=== PATIENT | male | born 1990 | race Caucasian/White ===

== ENCOUNTER 2023-05-28 20:33 | Emergency (ER) | payer OTHER, SELFPAY ==
[2023-05-28 20:58] VITALS: BP 115/73
[2023-05-28 21:15] LABS: % Basophils 0.7 % (0-2); % Eosinophils 2.3 % (0-6); % Immature Granulocytes 0.3 % (0-0.5); % Neutrophils 58.7 % (42.2-75.2); Absolute Eosinophils 0.1 10^3/uL (0-0.7); Absolute Lymphocytes 1.7 10^3/uL (1.2-3.4); Absolute Monocytes 0.5 10^3/uL (0.1-0.6); Absolute Neutrophils 3.4 10^3/uL (1.4-6.5); Hematocrit 36.9 % (39.0-52.0); Hemoglobin 13.9 g/dL (13.0-18.0); Mean Corp Hgb Conc. 37.7 g/dL (33.0-37.0); Mean Corpuscular Hgb 29.9 pg (27.0-31.0); Mean Corpuscular Volume 79.4 fL (80.0-94.0); Mean Platelet Volume 9.2 fL (7.4-10.4); Nucleated Red Blood Cells % 0 % (-); Platelet Count 154 10^3/uL (130-400); Red Blood Cell Count 4.65 10^6/uL (4.70-6.10); Red Cell Dist. Width 12.9 % (11.5-14.5); Urine Albumin Negative (Neg - Trace); Urine Bilirubin 1+ (Negative); Urine Character Clear (Clear); Urine Color Yellow; Urine Glucose Negative (Negative); Urine Ketone Trace (Negative); Urine Leukocyte Negative (Negative); Urine Nitrite Negative (Negative); Urine Occult Blood Negative (Negative); Urine Specific Gravity 1.025 (<1.030); Urine Urobilinogen 1+ (Neg - 1+); White Blood Cell Count 5.8 10^3/uL (4.8-10.8)
[2023-05-28 21:30] LABS: ALT (SGPT) 43 U/L (0-50); AST (SGOT) 61 U/L (17-59); Albumin 4.8 g/dl (3.5-5.0); Alkaline Phosphatase 79 U/L (38-126); Blood Urea Nitrogen 13 mg/dl (9-20); Calcium 8.9 mg/dl (8.4-10.2); Carbon Dioxide 31 mmol/L (22-30); Chloride 101 mmol/L (98-107); Glucose 140 mg/dl (70-99); Lipase 140 U/L (23-300); Potassium 3.7 mmol/L (3.5-5.1); Sodium 137 mmol/L (135-145); Total Bilirubin 1.1 mg/dl (0.2-1.3); eGFR > 60.00
--- NOTE | 2023-05-28 21:45 | ED.GENMED ---
History of Present Illness
General
Chief Complaint: Abdominal Pain
Source: patient and spouse
Exam Limitations: none
Time Seen by Provider: 05/28/23 21:27
Nursing documentation reviewed up to this point in time: agreed with
Travel History
Have you had any contact with someone who has COVID-19?: No
Do you have any symptoms of coronavirus? Fever > 100 degrees, chills, cough, shortness of breath, sore throat, loss of taste or smell, muscle aches, or headache?: No
History of Present Illness
History of Present Illness:
33-year-old male nondrinker non-smoker no prior abdominal surgery presents with upper right abdominal pain after eating dinner fairly severe 8 out of 10 felt nauseous felt like he been punched, no shortness of breath no hematuria no groin pain no
prior episodes does not drink or smoke
Past History
Past History
ED Past Medical History: None
ED Past Surgical History: Other (Oral surgery)
Social History
Tobacco: Non-smoker
Alcohol: None
Drug: None
Personal:
Living: with family
Employment: Employed
Review of Systems
Review of Systems
All Other Systems: Not applicable
Constitutional: Denies fever or fatigue
Respiratory: Reports no symptoms
Cardiac: Reports no symptoms
ABD/GI: Reports abdominal pain and nausea; Denies diarrhea or constipated
: Reports no symptoms
Musculoskeletal: Reports no symptoms
Neurological: Reports no symptoms
Phy Exam
Physical Exam
Physical Exam:
Physical Exam
General: no apparent distress, not acutely ill
Neck: No jaundice
Heart: s1/s2 regular rate and rhythm, no murmur. equal radial pulses.
Lungs: no acute respiratory distress. clear bilaterally
Abdomen: Mild tenderness in the right mid abdomen no lower abdominal tenderness no hernias.
Neuro: alert and oriented. no focal neurological deficits
Skin: no rash
Psychiatric: well kept. interactive and cooperative
Extremities: no edema.
Course
Orders/Labs/Results
Orders:
Orders
05/28/23 21:09
Complete Blood Count/With Diff Urgent
Urinalysis Reflex To Culture Urgent
Date Specimen was Collected: 05/28/23
Time Specimen was Collected: 21:01
05/28/23 21:10
Comprehensive Metabolic Panel Urgent
Lipase Urgent
05/28/23 21:44
Electrocardiogram (*1) Stat
Reason for Study: Abdominal Pain
EKG- Treatment ONCE
Ketorolac [Toradol] 30 mg IV NOW STA
Ondansetron Injectable [Zofran] 4 mg IV NOW STA
US Abdomen Complete/Upper Urgent
Comment:
Reason For Exam: pain
05/28/23 22:30
Iohexol [Omnipaque] See Protocol PO NOW STA
05/29/23 00:45
CT Abd/pel W Iv And Oral Contr Urgent
Reason For Exam: right sided pain
Abnormal Lab Results
05/28/23 05/28/23
21:09 21:10
RBC 4.65 L 10^6/uL
(4.70-6.10)
Hct 36.9 L %
(39.0-52.0)
MCV 79.4 L fL
(80.0-94.0)
MCHC 37.7 H g/dL
(33.0-37.0)
Carbon Dioxide 31 H mmol/L
(22-30)
Glucose 140 H mg/dl
(70-99)
AST 61 H U/L
(17-59)
Urine Ketones Trace A
(Negative)
Urine Bilirubin 1+ A
(Negative)
05/28/23 21:09
05/28/23 21:10
Vital Signs
Initial and Last Documented VS:
Initial Vital Signs
Temp Pulse Resp BP Pulse Ox
98.2 F 68 16 115/73 99
05/28/23 20:58 05/28/23 20:58 05/28/23 20:58 05/28/23 20:58 05/28/23 20:58
Last Documented Vital Signs
Temp Pulse Resp BP Pulse Ox
98.2 F 50 18 117/75 99
05/28/23 20:58 05/29/23 00:40 05/29/23 00:40 05/29/23 00:40 05/29/23 00:40
MDM/Problems Addressed
Differential Diagnosis Includes:
Biliary colic pancreatitis less likely appendicitis diverticulitis constipation
MDM/Problems Addressed:
Abdominal pain
*Radiology
Radiology exam reviewed: radiology read reviewed
*Pulse Oximetry
Patient hypoxic: no
*EKG
Interpreted by ED Provider?: Yes
Interpretation: normal
Comparison EKG: no comparison EKG present
Heart Rate: 68
Rate: normal
Rhythm: sinus
[place]: normal axis
Ischemia: no ischemia
*Topper Packer Interpretation
Rate: Topper Packer- N/A
*Critical Care Note
Total Time (30-74mins, 75-104mins- exclusive of procedures): Not Applicable
Update Note
Update Note:
Update, ultrasound report noted labs noted will proceed with CT scanning EKG noted
CT noted reviewed with patient, looks like he has a gallstone but no secondary signs of cholecystitis patient feeling better, number given for general surgery discharge instructions signs and symptoms to return given
ED Attending Note
-
Portions of this chart may have been created with voice recognition software.� Occasional wrong word or��sound alike� substitutions may have occurred due to the inherent limitations of voice recognition software.
Discharge Plan
Departure
Patient Disposition: Home (Routine Discharge)
Patient with high blood pressure during this ER visit?: No
Condition: Good
Discharge Problem:
Abdominal pain
Instructions: Abdominal Pain, Gallstones (DC)
Prescriptions:
No Action
No Current Medications
0
Referrals:
UNKNOWN - PT DOES,NOT KNOW [Family Provider] -
Interventions
Interventions:
*Risk Screen - Suicide Last Done: 05/28/23 20:58
*General Assessment Last Done: 05/28/23 20:58
*Neglect/Abuse Screening Last Done: 05/28/23 20:58
ED- Fall Risk Assessment Last Done: 05/28/23 22:52
*ED COVID-19 Vaccine History Last Done: 05/29/23 02:05
*Nursing Disposition Last Done: 05/29/23 02:05
AU-Aggmil-Sjnuwrnyvc Assessment Last Done: 05/28/23 22:52
Discharge Date and Time
Discharge Date/Time: 05/29/23 02:05
Print Language: MONTSERRATIAN
[2023-05-28] MEDS: ZOFRAN 4 MG IV (22:16)
[2023-05-28] MEDS: TORADOL 30 MG IV (22:18)
[2023-05-28] MEDS: OMNIPAQUE 50 ML PO (22:46)
[2023-05-29 00:39] VITALS: BMI 25.2
[2023-05-29 00:40] VITALS: BP 117/75
--- NOTE | 2023-05-29 04:45 | DOWNTIME ---
There was a [employer] Downtime on 05/29/2023 from 0100 to 05/29/2023 at 0439. Downtime documentation of patient's care, including medication administrations, has been reconciled in the electronic record per guidelines. Refer to the
patient's paper chart under the miscellaneous tab to see printed paper medication records and downtime forms.
== END 2023-05-29 02:05 | disposition home or self-care (01) ==
LOC: EMR 20:33
PROVIDERS: EMERGENCY PHYSICIAN Emergency Medicine
DX: R10.9 Unspecified abdominal pain (principal); R11.0 Nausea; K80.20 Calculus of gallbladder without cholecystitis without obstruction
CPT/HCPCS: 99285; 96374; 96375; 74177; 76700; 80053; 81003; 83690; 85025; 93005; Q9967